=== PATIENT | female | born 1995 | race American Indian/Alaskan Native ===

== ENCOUNTER 2019-12-25 19:01 | Emergency (ER) | payer BC, MEDICARE ==
--- NOTE | 2019-12-25 21:41 | Event Note ---
ED Screening Note ED Screening Note: states that she has a condom stuck since last night around 10:30pm denies any pain no vaginal discharge LNMP: 12/10/2019 This initial assessment/diagnostic orders/clinical plan/treatment(s) is/are subject to change based on patients health status, clinical progression and re- assessment by fellow clinical providers in the ED. Further treatment and workup at subsequent clinical providers discretion. Patient/guardian urged not to elope from the ED as their condition may be serious if not clinically assessed and managed. Initial orders include: acc eval
[2019-12-25 21:42] VITALS: BP 107/62
--- NOTE | 2019-12-25 22:45 | Emergency Department Report ---
ED Female HPI - General Chief complaint: Vaginal Bleeding Stated complaint: CONDOM STUCK IN VAGINA Time Seen by Provider: 12/25/19 21:40 Source: patient Mode of arrival: Ambulatory Limitations: No Limitations - History of Present Illness Initial comments: states that she has a condom stuck since last night around 10:30pm denies any pain no vaginal discharge LNMP: 12/10/2019 -: Last night Severity scale (0 -10): 0 Are you Now?: No Last Menstrual Period: 12/10/19 EDC: 09/15/20 Associated Symptoms: denies other symptoms - Related Data Sexually active: Yes Previous Rx's Medication Instructions Recorded Last Taken Type Ferrous Sulfate [Feosol 325 MG tab] 325 mg PO QDAY #30 tablet 12/31/15 Unknown Rx Allergies Allergy/AdvReac Type Severity Reaction Status Date / Time No Known Allergies Allergy Verified 05/23/15 17:52 ED Review of Systems ROS: Stated complaint: CONDOM STUCK IN VAGINA Other details as noted in HPI Comment: All other systems reviewed and negative ED Past Medical Hx - Past Medical History Previous Medical History?: Yes Hx Hypertension: No Hx Diabetes: No Hx Deep Vein Thrombosis: No Hx Renal Disease: No Hx Sickle Cell Disease: No Hx Seizures: No Hx Asthma: No Hx HIV: No Additional medical history: anemia - Surgical History Past Surgical History?: Yes Hx Appendectomy: Yes - Social History Smoking Status: Never Smoker - Medications Home Medications: Home Medications Medication Instructions Recorded Confirmed Last Taken Type Ferrous Sulfate [Feosol 325 MG tab] 325 mg PO QDAY #30 tablet 12/31/15 Unknown Rx ED Physical Exam - General Limitations: No Limitations General appearance: alert, in no apparent distress - Head Head exam: Present: atraumatic, normocephalic - ENT ENT exam: Present: mucous membranes moist - External exam: Present: normal external exam Speculum exam: Present: foreign body (Left adnexal condom) Bi-manual exam: Present: normal bi-manual exam. Absent: cervical motion tendernes, adnexal tenderness, uterine tenderness - Extremities Exam Extremities exam: Present: normal inspection, full ROM - Neurological Exam Neurological exam: Present: alert, oriented X3, normal gait - Psychiatric Psychiatric exam: Present: normal affect, normal mood - Skin Skin exam: Present: warm, dry, intact, normal color. Absent: rash ED Course Vital Signs 12/25/19 21:40 Temperature 98 F Pulse Rate 66 Respiratory 18 Rate Blood Pressure 107/62 O2 Sat by Pulse 100 Oximetry - Procedure Description Procedures done: Foreign body removal from vaginal left adnexal area chondroma was removed patient tolerated well tissue in vaginal vault appears to be healthy nonerythematous nonedematous. No vaginal discharge or bleeding appreciated ED Medical Decision Making - Medical Decision Making states that she has a condom stuck since last night around 10:30pm denies any pain no vaginal discharge LNMP: 12/10/2019 Condom removed from vaginal vault from the left adnexal area patient tolerated well Critical care attestation.: If time is entered above; I have spent that time in minutes in the direct care of this critically ill patient, excluding procedure time. ED Disposition Clinical Impression: Foreign body in vagina Qualifiers: Encounter type: initial encounter Qualified Code(s): T19.2XXA - Foreign body in vulva and vagina, initial encounter Disposition: DC-01 TO HOME OR SELFCARE Is pt being admited?: No Does the pt Need Aspirin: No Condition: Stable Referrals: PRIMARY CARE, [Primary Care Provider] - 3-5 Days
== END 2019-12-25 22:43 | disposition home or self-care (01) ==
LOC: ED 19:01
DX: T19.2XXA Foreign body in vulva and vagina, initial encounter (principal); D64.9 Anemia, unspecified; Z90.49 Acquired absence of other specified parts of digestive tract; Z79.899 Other long term (current) drug therapy; X58.XXXA Exposure to other specified factors, initial encounter; Y93.89 Activity, other specified; Y92.89 Other specified places as the place of occurrence of the external cause; Y99.8 Other external cause status

== ENCOUNTER 2020-11-07 13:07 | Emergency (ER) | payer BC, MEDICARE ==
[2020-11-07 14:07] VITALS: BP 112/71
[2020-11-07] MEDS ORDERED: SODIUM CHLORIDE 0.9% 1000 ML 1,000 ML IV ONE (14:37)
[2020-11-07] MEDS ORDERED: ONDANSETRON 4 MG/2 ML INJ IV ONE (14:37)
[2020-11-07] MEDS ORDERED: FAMOTIDINE 20 MG/2 ML INJ IV ONE (14:37)
--- NOTE | 2020-11-07 15:01 | Emergency Department Report ---
ED N/V/D HPI - General Chief complaint: Nausea/Vomiting/Diarrhea Stated complaint: (8WKS PREG) VOMITING Source: patient Mode of arrival: Ambulatory Limitations: No Limitations - History of Present Illness Initial comments: Patient is a 25-year-old female who presents to emergency department complaining of nausea and vomiting. Patient states for the past 2 weeks she has had the symptoms. She thinks she is approximately 8 weeks . Reports LMP September 07-. Patient denies history of ectopic but states she has had a miscarriage in the past. She denies abdominal pain at this time. She has not had vaginal bleeding or trouble urinating. MD complaint: nausea, vomiting - Related Data Previous Rx's Medication Instructions Recorded Last Taken Type Ferrous Sulfate [Feosol 325 MG tab] 325 mg PO QDAY #30 tablet 12/31/15 Unknown Rx Doxylamine Succinate [Nighttime 25 mg PO QHS #30 tablet 11/07/20 Unknown Rx Sleep-Aid] Pyridoxine HCl [Vitamin B-6 100MG 100 mg PO DAILY 30 Days #30 tablet 11/07/20 Unknown Rx TAB] Allergies Allergy/AdvReac Type Severity Reaction Status Date / Time No Known Allergies Allergy Verified 05/23/15 17:52 ED Review of Systems ROS: Stated complaint: (8WKS PREG) VOMITING Other details as noted in HPI Constitutional: denies: chills, fever Eyes: denies: eye discharge ENT: denies: dental pain Respiratory: denies: cough, shortness of breath Cardiovascular: denies: chest pain Endocrine: no symptoms reported Gastrointestinal: nausea, vomiting. denies: abdominal pain, diarrhea Genitourinary: denies: dysuria, frequency Musculoskeletal: denies: back pain Skin: denies: rash Neurological: denies: headache Psychiatric: denies: anxiety, depression Hematological/Lymphatic: denies: easy bleeding ED Past Medical Hx - Past Medical History Previous Medical History?: Yes Hx Hypertension: No Hx Diabetes: No Hx Deep Vein Thrombosis: No Hx Renal Disease: No Hx Sickle Cell Disease: No Hx Seizures: No Hx Asthma: No Hx HIV: No Additional medical history: anemia - Surgical History Past Surgical History?: Yes Hx Appendectomy: Yes - Social History Smoking Status: Never Smoker - Medications Home Medications: Home Medications Medication Instructions Recorded Confirmed Last Taken Type Ferrous Sulfate [Feosol 325 MG tab] 325 mg PO QDAY #30 tablet 12/31/15 Unknown Rx Doxylamine Succinate [Nighttime 25 mg PO QHS #30 tablet 11/07/20 Unknown Rx Sleep-Aid] Pyridoxine HCl [Vitamin B-6 100MG 100 mg PO DAILY 30 Days #30 tablet 11/07/20 Unknown Rx TAB] ED Physical Exam - General Limitations: No Limitations General appearance: alert, in no apparent distress - Head Head exam: Present: atraumatic, normocephalic - Eye Eye exam: Present: normal appearance Pupils: Present: normal accommodation - ENT ENT exam: Present: normal exam - Neck Neck exam: Present: normal inspection - Respiratory Respiratory exam: Present: normal lung sounds bilaterally, respiratory distress. Absent: chest wall tenderness - Cardiovascular Cardiovascular Exam: Present: regular rate, normal rhythm, normal heart sounds - GI/Abdominal GI/Abdominal exam: Present: soft. Absent: distended, tenderness - Rectal Rectal exam: Present: deferred - Extremities Exam Extremities exam: Present: normal inspection - Back Exam Back exam: Present: normal inspection - Neurological Exam Neurological exam: Present: alert, oriented X3 - Psychiatric Psychiatric exam: Present: normal affect - Skin Skin exam: Present: warm, dry, intact ED Course Vital Signs 11/07/20 14:03 Temperature 98.0 F Pulse Rate 97 H Respiratory 18 Rate Blood Pressure 112/71 [Right] O2 Sat by Pulse 98 Oximetry - Reevaluation(s) Reevaluation #1: 11/07/20 16:59 Improved. Patient is tolerating p.o. ED Medical Decision Making - Lab Data Result diagrams: 11/07/20 14:43 11/07/20 14:43 - Radiology Data Radiology results: report reviewed - Medical Decision Making 25-year-old female here with complaint of nausea vomiting. Patient's LMP was September 11. She states she is approximately 8 weeks . She denies abdominal pain nausea vomiting has been for the past 2 weeks. Differential inc ludes ectopic , abnormal , hyperemesis gravidarum, normal nausea vomiting of . Plan for evaluation with basic labs including CMP, lipase, urinalysis. Patient undergo ultrasound to ensure her is intrauterine. If improved patient likely to be discharged with follow-up with [facility]. Critical care attestation.: If time is entered above; I have spent that time in minutes in the direct care of this critically ill patient, excluding procedure time. ED Disposition Clinical Impression: Nausea & vomiting, Normal IUP (intrauterine ) on ultrasound Disposition: DC-01 TO HOME OR SELFCARE Is pt being admited?: No Does the pt Need Aspirin: No Condition: Stable Instructions: Nausea, Adult, Nausea and Vomiting, Adult Prescriptions: Doxylamine Succinate [Nighttime Sleep-Aid] 25 mg PO QHS #30 tablet Pyridoxine HCl [Vitamin B-6 100MG TAB] 100 mg PO DAILY 30 Days #30 tablet Forms: Work/School Release Form(ED) Print Language: [place]AST [place]
[2020-11-07 15:28] LABS: Alanine Aminotransferase 17 units/L (7-56); Albumin 4.5 g/dL (3.9-5); Blood Urea Nitrogen 6 mg/dL (7-17); Calcium 9.8 mg/dL (8.4-10.2); Hemolysis Index 3
[2020-11-07 15:34] LABS: Basophils % (Auto) 0.4 % (0.0-1.8); Eosinophils % (Auto) 0.4 % (0.0-4.3); Hematocrit 38.9 % (30.3-42.9); Hemoglobin 13.7 gm/dl (10.1-14.3); Lymphocytes # (Auto) 1.5 K/mm3 (1.2-5.4); Lymphocytes % (Auto) 15.5 % (13.4-35.0); Mean Corpuscular HGB Conc 35 % (30-34); Mean Corpuscular Volume 85 fl (79-97); Monocytes # (Auto) 0.7 K/mm3 (0.0-0.8); Monocytes % (Auto) 7.6 % (0.0-7.3); Platelet Count 282 K/mm3 (140-440); Red Blood Count 4.57 M/mm3 (3.65-5.03)
[2020-11-07 15:36] LABS: BUN/Creatinine Ratio 10
--- NOTE | 2020-11-07 15:59 | Ultrasound Report ---
US OB <= 14 weeks fetus INDICATION / CLINICAL INFORMATION: n/v lmp 09/11. COMPARISON: None available. FINDINGS: Single, viable intrauterine . heart rate 181. [place]-rump length measures 17.4 mm, corresponding to a gestational age of 8 weeks 1 day. 2 cm area of subchorionic hemorrhage. Left ovary is normal. Right ovary contains 2 small cysts. No free fluid. IMPRESSION: 1. Viable, 8 week 1 day intrauterine . Signer Name: Tae Queen MD Signed: 11/07/2020 3:55 PM Workstation Name: [id number]
[2020-11-07 16:35] LABS: Bacteria,Urine 2+ /HPF (Negative); Bilirubin,Urine NEG (Negative); Blood,Urine NEG (Negative); Color,Urine Amber (Yellow); Hyaline Casts,Urine 2 /LPF; Mucus,Urine 3+ /HPF
[2020-11-07] MEDS ORDERED: POTASSIUM CHLORIDE ER 20 MEQ TAB PO ONE (16:46)
== END 2020-11-07 17:17 | disposition home or self-care (01) ==
LOC: ED 13:07
DX: O21.8 Other vomiting complicating pregnancy (principal); Z90.49 Acquired absence of other specified parts of digestive tract; Z79.899 Other long term (current) drug therapy; Z3A.08 8 weeks gestation of pregnancy
CPT/HCPCS: 36415; 76801; 80053; 81001; 83690; 84702; 85025; 86900; 86901; 87086; 96361; 96374; 99284; J2405; J7030

== ENCOUNTER 2020-11-21 19:24 | Emergency (ER) | payer BC, OTHER ==
[2020-11-21] MEDS ORDERED: SODIUM CHLORIDE 0.9% 1000 ML 1,000 ML IV ONE (21:24)
[2020-11-21 22:02] LABS: Hematocrit 41.2 % (30.3-42.9); Hemoglobin 14.2 gm/dl (10.1-14.3); Mean Corpuscular HGB Conc 35 % (30-34); Mean Corpuscular Volume 85 fl (79-97); Platelet Count 321 K/mm3 (140-440); Red Blood Count 4.86 M/mm3 (3.65-5.03)
[2020-11-21] MEDS ORDERED: FAMOTIDINE 20 MG/2 ML INJ IV ONE (22:18)
[2020-11-21] MEDS ORDERED: ACETAMINOPHEN 500 MG TAB PO ONE (22:19)
[2020-11-21] MEDS ORDERED: ONDANSETRON 4 MG/2 ML INJ IV ONE (22:19)
[2020-11-21 22:43] LABS: Alanine Aminotransferase 12 units/L (7-56); Albumin 4.8 g/dL (3.9-5); Blood Urea Nitrogen 4 mg/dL (7-17); Hemolysis Index 0
[2020-11-21 22:52] LABS: BUN/Creatinine Ratio 7
[2020-11-22 00:25] LABS: Bacteria,Urine 1+ /HPF (Negative); Bilirubin,Urine NEG (Negative); Blood,Urine NEG (Negative); Color,Urine Yellow (Yellow); Mucus,Urine 3+ /HPF
--- NOTE | 2020-11-22 01:41 | Emergency Department Report ---
ED N/V/D HPI - General Chief complaint: Nausea/Vomiting/Diarrhea Stated complaint: 10 WKS PREG,VOMITING, NAUSEA, HEADACHE Source: patient Mode of arrival: Ambulatory Limitations: No Limitations - History of Present Illness Initial comments: Patient is a A0 25-year-old -[place] female who is approximately 10 weeks gestation and who presents to the ED with acute onset persistent intractable nausea and vomiting, lack of appetite and generalized weakness for the last 1 week. Patient states that she does not take any medication for nausea at home. Patient denies dizziness, syncope, chest pain, shortness of breath, fever, chills, dysuria, urinary frequency and urgency, cough, vaginal bleeding, vaginal discharge, low back pain, sore throat, headache or loss of co nsciousness. MD complaint: nausea, vomiting -: Sudden, week(s) (1) Description of Vomiting: food contents Associated Abdominal Pain: No Location: diffuse Radiation: none Severity: moderate Pain Scale: 6 Quality: cramping, dull Consistency: intermittent Improves with: none Worsens with: eating, vomiting Context: other (10 Weeks gestation) Associated Symptoms: denies other symptoms, loss of appetite, malaise, nausea/vomiting. denies: myalgias, chest pain, cough, diaphoresis, fever/chills, headaches, rash, dysuria, shortness of breath, syncope, weakness, other - Related Data Previous Rx's Medication Instructions Recorded Last Taken Type Ferrous Sulfate [Feosol 325 MG tab] 325 mg PO QDAY #30 tablet 12/31/15 Unknown Rx Doxylamine Succinate [Nighttime 25 mg PO QHS #30 tablet 11/07/20 Unknown Rx Sleep-Aid] Pyridoxine HCl [Vitamin B-6 100MG 100 mg PO DAILY 30 Days #30 tablet 11/07/20 U nknown Rx TAB] Acetaminophen [Tylenol] 500 mg PO Q6HR PRN #30 tablet 11/22/20 Unknown Rx Famotidine [Pepcid] 20 mg PO BID #40 tablet 11/22/20 Unknown Rx Metoclopramide [Reglan] 10 mg PO Q8H PRN #30 tab 11/22/20 Unknown Rx Promethazine HCl [Phenergan SUPPOS] 25 mg RC Q6H PRN #15 supp.rect 11/22/20 Unknown Rx cephALEXin [Keflex] 500 mg PO Q8HR #30 capsule 11/22/20 Unknown Rx Allergies Allergy/AdvReac Type Severity Reaction Status Date / Time No Known Allergies Allergy Verified 05/23/15 17:52 ED Review of Systems ROS: Stated complaint: 10 WKS PREG,VOMITING, NAUSEA, HEADACHE Other details as noted in HPI Constitutional: denies: chills, fever Eyes: denies: eye pain, eye discharge, vision change ENT: denies: ear pain, throat pain Respiratory: denies: cough, shortness of breath, wheezing Cardiovascular: denies: chest pain, palpitations Endocrine: no symptoms reported Gastrointestinal: nausea, vomiting. denies: abdominal pain, diarrhea Genitourinary: denies: urgency, dysuria, discharge Musculoskeletal: denies: back pain, joint swelling, arthralgia Skin: denies: rash, lesions Neurological: denies: headache, weakness, paresthesias Psychiatric: denies: anxiety, depression Hematological/Lymphatic: denies: easy bleeding, easy bruising ED Past Medical Hx - Past Medical History Previous Medical History?: Yes Hx Hypertension: No Hx Diabetes: No Hx Deep Vein Thrombosis: No Hx Renal Disease: No Hx Sickle Cell Disease: No Hx Seizures: No Hx Asthma: No Hx HIV: No Additional medical history: anemia- WITH TRANSFUSION - Surgical History Hx Appendectomy: Yes - Social History Smoking Status: Never Smoker Substance Use Type: None - Medications Home Medications: Home Medications Medication Instructions Recorded Confirmed Last Taken Type Ferrous Sulfate [Feosol 325 MG tab] 325 mg PO QDAY #30 tablet 12/31/15 Unknown Rx Doxylamine Succinate [Nighttime 25 mg PO QHS #30 tablet 11/07/20 Unknown Rx Sleep-Aid] Pyridoxine HCl [Vitamin B-6 100MG 100 mg PO DAILY 30 Days #30 tablet 11/07/20 Unknown Rx TAB] Acetaminophen [Tylenol] 500 mg PO Q6HR PRN #30 tablet 11/22/20 Unknown Rx Famotidine [Pepcid] 20 mg PO BID #40 tablet 11/22/20 Unknown Rx Metoclopramide [Reglan] 10 mg PO Q8H PRN #30 tab 11/22/20 Unknown Rx Promethazine HCl [Phenergan SUPPOS] 25 mg RC Q6H PRN #15 supp.rect 11/22/20 Unknown Rx cephALEXin [Keflex] 500 mg PO Q8HR #30 capsule 11/22/20 Unknown Rx ED Physical Exam - General Limitations: No Limitations General appearance: alert, in no apparent distress - Head Head exam: Present: atraumatic, normocephalic, normal inspection - Eye Eye exam: Present: normal appearance, PERRL, EOMI Pupils: Present: normal accommodation - ENT ENT exam: Present: normal exam, normal orophraynx, mucous membranes moist, TM's normal bilaterally, normal external ear exam - Neck Neck exam: Present: normal inspection, full ROM - Respiratory Respiratory exam: Present: normal lung sounds bilaterally. Absent: respiratory distress, wheezes, rales, rhonchi, chest wall tenderness, decreased breath sounds, prolonged expiratory - Cardiovascular Cardiovascular Exam: Present: normal rhythm, tachycardia, normal heart sounds. Absent: systolic murmur, diastolic murmur, rubs, gallop - GI/Abdominal GI/Abdominal exam: Present: soft, normal bowel sounds. Absent: tenderness, guarding, hyperactive bowel sounds - Extremities Exam Extremities exam: Present: normal inspection, full ROM, normal capillary refill - Back Exam Back exam: Present: normal inspection, full ROM. Absent: tenderness, CVA tenderness (R), CVA tenderness (L), muscle spasm, paraspinal tenderness - Neurological Exam Neurological exam: Present: alert, oriented X3, CN II-XII intact, normal gait, reflexes normal - Psychiatric Psychiatric exam: Present: normal affect, normal mood - Skin Skin exam: Present: warm, dry, intact, normal color. Absent: rash ED Course Vital Signs 11/21/20 19:28 Temperature 99.9 F H Pulse Rate 103 H Respiratory 18 Rate Blood Pressure 120/68 O2 Sat by Pulse 98 Oximetry ED Medical Decision Making - Lab Data Result diagrams: 11/21/20 21:32 11/21/20 21:32 - Medical Decision Making This is a A0 25-year-old -[place] female who is approximately 10 weeks gestation and who presents to the ED with acute onset persistent intractable nausea and vomiting, lack of appetite and generalized weakness for the last 1 week. Patient states that she does not take any medication for nausea at home. In the ED, patient is alert and oriented x3 and is not in distress. Patient was treated for nausea and vomiting and was given normal saline 1 L IV bolus x1. Patient also received antacids and on reevaluation, patient's nausea and vomiting resolved medications. Lab test results were reviewed and are all nonactionable except for urinalysis that showed significant urinary tract infection. [place] was [id number]. Patient passed oral fluid challenge in the ED. Patient was therefore discharged home on medications and advised follow-up with her [facility] physician in 3 to 5 days for reevaluation or return to the ED immediately if symptoms get worse. - Differential Diagnosis Hyperemesis gravidurum; Dehydration; Gastroenteritis; UTI; Critical care attestation.: If time is entered above; I have spent that time in minutes in the direct care of this critically ill patient, excluding procedure time. ED Disposition Clinical Impression: Hyperemesis gravidarum, Acute urinary tract infection, , excessive vomiting Disposition: TO HOME OR SELFCARE Is pt being admited?: No Does the pt Need Aspirin: No Condition: Stable Instructions: Hyperemesis Gravidarum, Nausea and Vomiting, Adult, [id number], and Urinary Tract Infection, Urinary Tract Infection, Adult, [id number] Additional Instructions: All lab test results were reviewed and are all nonactionable except for UTI which was evident in your urinalysis. Therefore take medications with food, drink plenty of fluids and follow-up with your primary care physician or [facility] physician in 3 to 5 days for reevaluation. Return to the ED immediately if symptoms get worse. Prescriptions: Acetaminophen [Tylenol] 500 mg PO Q6HR PRN #30 tablet PRN Reason: Pain , Severe (7-10) cephALEXin [Keflex] 500 mg PO Q8HR #30 capsule Famotidine [Pepcid] 20 mg PO BID #40 tablet Promethazine HCl [Phenergan SUPPOS] 25 mg RC Q6H PRN #15 supp.rect PRN Reason: Nausea Metoclopramide [Reglan] 10 mg PO Q8H PRN #30 tab PRN Reason: Nausea Referrals: JARED BECKHAM MD [Staff Physician] - 3-5 Days Time of Disposition: 01:44 Print Language: NAM[place]
[2020-11-22 02:16] VITALS: BP 128/78
== END 2020-11-22 02:16 | disposition home or self-care (01) ==
LOC: ED 19:24
DX: O21.0 Mild hyperemesis gravidarum (principal); O23.41 Unspecified infection of urinary tract in pregnancy, first trimester; Z90.49 Acquired absence of other specified parts of digestive tract; Z79.899 Other long term (current) drug therapy
CPT/HCPCS: 36415; 80053; 81001; 84702; 85027; 87086; 96361; 96374; 96375; 99283; J2405; J7030

== ENCOUNTER 2021-05-12 14:23 | Outpatient (CLI) | payer BC, OTHER ==
[2021-05-12 14:50] VITALS: BP 121/71
[2021-05-12 16:00] LABS: Bacteria,Urine 1+ /HPF (Negative); Bilirubin,Urine NEG (Negative); Blood,Urine NEG (Negative); Color,Urine Colorless (Yellow); Protein,Urine <15 mg/dL mg/dL (Negative); RBC,Urine < 1.0 /HPF (0.0-6.0); Urobilinogen,Urine < 2.0 mg/dL (<2.0); WBC,Urine < 1.0 /HPF (0.0-6.0)
[2021-05-12] MEDS ORDERED: LACTATED RINGERS 1,000 ML IV ONE (16:00)
[2021-05-12] MEDS ORDERED: TERBUTALINE 1 MG/1 ML INJ SUB-Q SCH (18:00)
[2021-05-12] MEDS ORDERED: LACTATED RINGERS 500 ML IV ONE (18:00)
[2021-05-12] MEDS ORDERED: BETAMET ACET/BETAMET NA PH 6 MG/ML INJ 5 ML MDV IM ONE (18:57)
[2021-05-12] MEDS ORDERED: BETAMET ACET/BETAMET NA PH 6 MG/ML INJ 5 ML MDV IM SCH (19:05)
== END 2021-05-12 19:23 | disposition home or self-care (01) ==
LOC: TRG 14:23 → APU 14:24 → TRG 19:23
DX: O26.893 Other specified pregnancy related conditions, third trimester (principal); R10.10 Upper abdominal pain, unspecified; Z3A.34 34 weeks gestation of pregnancy
CPT/HCPCS: 81001; 96360; 96361; 96372; J0702; J3105; J7120

== ENCOUNTER 2021-05-13 19:02 | Outpatient (CLI) | payer BC, OTHER ==
[2021-05-13 19:38] VITALS: BP 118/65
[2021-05-13] MEDS ORDERED: BETAMET ACET/BETAMET NA PH 6 MG/ML INJ 5 ML MDV IM ONE ×2 (19:38→20:32)
== END 2021-05-13 20:07 | disposition home or self-care (01) ==
LOC: TRG 19:02 → APU 19:04 → TRG 20:07
PROVIDERS: ATTEND Obstetrics & Gynecology
DX: O47.03 False labor before 37 completed weeks of gestation, third trimester (principal); Z3A.34 34 weeks gestation of pregnancy
CPT/HCPCS: 96372; J0702

== ENCOUNTER 2021-06-19 15:39 | Inpatient (IN) | payer BC, OTHER ==
[2021-06-22 09:28] VITALS: BP 136/79
== END 2021-06-22 12:05 | disposition home or self-care (01) | DRG 807 ==
LOC: TRG 15:39 → APU 15:40 → TRG 16:35 → APU 16:35 → LD 17:01 → OB 06-20 06:32
PROVIDERS: ADMIT Obstetrics & Gynecology; ATTEND Obstetrics & Gynecology
PROC: 10E0XZZ Delivery of Products of Conception, External Approach (ICD-10-PCS; principal; 2021-06-20)
PROC: 3E0R3BZ Introduction of Anesthetic Agent into Spinal Canal, Percutaneous Approach (ICD-10-PCS; 2021-06-20)
PROC: 00HU33Z Insertion of Infusion Device into Spinal Canal, Percutaneous Approach (ICD-10-PCS; 2021-06-20)
DX: O76 Abnormality in fetal heart rate and rhythm complicating labor and delivery (principal); Z37.0 Single live birth; O99.214 Obesity complicating childbirth; Z3A.40 40 weeks gestation of pregnancy; Z20.822 Contact with and (suspected) exposure to COVID-19; O99.02 Anemia complicating childbirth
CPT/HCPCS: 36415; 80053; 81001; 83615; 84550; 85014; 85018; 85027; 86592; 86850; 86900; 86901; 87086; G0378; J3010; J7120; U0003